=== PATIENT | male | born 1960 | race Caucasian/White ===

== ENCOUNTER → 2019-06-26 12:13 | Outpatient (BNVA) | payer OTHER, MEDICARE, SELFPAY | PROVIDERS: Referring Provider Emergency Medicine Emergency Medical Services; Visit Provider Specialist | DX: G43.909 Migraine, unspecified, not intractable, without status migrainosus (principal); H53.2 Diplopia | CPT/HCPCS: 99204 ==

== ENCOUNTER 2019-08-02 12:44 | Emergency (ER) | payer OTHER, MEDICARE, SELFPAY ==
[2019-08-02] VITALS (10 sets, daily range): BP systolic 106–134; BP diastolic 69–95; PULSE 52–58; RESP 13–16; TEMP 36.6; O2SAT 85–98; BMI 30.7
--- NOTE | 2019-08-02 13:30 | XRR_ITS ---
PROCEDURE INFORMATION: Exam: XR Chest, 1 View Exam date and time: 08/02/2019 1:57 PM Age: 59 years old Clinical indication: Chest pain; Type not specified; Prior surgery; Surgery date: 6+ months; Surgery type: Aortic aneurysm with heart valve replacement x5 yrs; Patient HX: PT came in today with c/p, unresolved, PT is an ex smoker TECHNIQUE: Imaging protocol: XR of the chest Views: 1 view. COMPARISON: No relevant prior studies available. FINDINGS: Lungs: Unremarkable. No consolidation. Pleural space: Unremarkable. No pleural effusion. No pneumothorax. Heart/Mediastinum: There are posterior sternotomy changes and postoperative changes overlying the mediastinum. Heart size not optimally evaluated with a single AP view of the chest. Bones/joints: Unremarkable. XR/XR chest 1V portable [id number] IMPRESSION: No evidence for acute cardiopulmonary disease.
--- NOTE | 2019-08-02 13:32 | ECG_ITS ---
Measurements Intervals [place] Rate: 55 P: 20 LA: 194 QRS: -10 QRSD: 107 T: 16 QT: 405 QTc: 389 SINUS BRADYCARDIA MODERATE VOLTAGE CRITERIA FOR LVH, CONSIDER NORMAL VARIANT [MEETS CRITERIA IN ON ONE OF: R(aVL), S(V1), R(V5), R(V5/V6)+S(V1)] No previous ECG available for comparison Electronically Signed On 08-02-2019 15:17:52 CDT by Ana Cristina Ware M.D. [id number]
--- NOTE | 2019-08-02 13:55 | ED_ITS ---
HPI - Dizziness General: Chief Complaint: Dizziness Stated Complaint: WEAKNESS; DIZZY Time Seen by Provider: 08/02/19 13:02 Source: patient Mode of arrival: EMS Limitations: no limitations History of Present Illness: HPI Narrative: Patient is a 59-year-old gentleman with a history of aortic aneurysm repair and aortic valve replacement who presents to the emergency department with sudden onset dizziness. He was driving home from the grocery store a few minutes ago when he developed sudden onset of dizziness and diaphoresis. He denies any chest pain at the time. He felt nauseous but no vomiting. Because of this he called the ambulance and presents to the emergency department for evaluation. MD elicited complaint: dizziness Severity: severe Description: off-balance History of similar symptoms: Yes (but never this severe or for this long.) Exacerbating factors: nothing Relieving factors: nothing Associated symptoms: Reports no associated symptoms; Denies chills, headache(s), nausea, palpitations or vomiting Associated neuro symptoms: Reports no associated symptoms; Deny numbness in extremities Review of Systems General: Reports: 10 or more systems reviewed and unremarkable except in HPI and below Const: Denies: fever(s), chills or body aches Eyes: Denies: change in vision or blurry vision Card: Denies: palpitations, irregular heart rhythm, edema or swelling of feet/ankles Resp: Denies: dyspnea, productive cough or non-productive cough GI: Denies: abdominal pain, nausea or vomiting : Denies: flank pain, dysuria, urinary frequency, urinary urgency or urinary hesitancy Musc: Denies: neck pain, back pain or extremity swelling Neuro: Denies: headache(s), numbness in extremities or weakness in extremities Endo: Denies: polyuria, polydipsia or tired all the time [facility] PFSH: Social History Smoking and tobacco status: former smoker Physical Exam Const: COMMON NORMALS: no acute distress, average body habitus, patient oriented x3, no limitations, healthy appearing, alert and well nourished HENMT: COMMON NORMALS: normocephalic, atraumatic and moist oral mucous membranes HEAD & SCALP: normocephalic and atraumatic Neck/C-Spine: COMMON NORMALS: no meningeal signs and no JVD Resp: COMMON NORMALS: normal respiratory effort, No retractions, No use of accessory muscles, clear to auscultation bilaterally and percussion normal AUSCULTATION: clear to auscultation bilaterally PERCUSSION: percussion normal Cardio: COMMON NORMALS: no JVD, regular rhythm, S1 normal heart sound present, S2 normal heart sound present, No gallops present (Cardio), No clicks present (Cardio), No murmurs present (Cardio), No rub (Cardio) and Peripheral pulses 2+ throughout RATE: bradycardic RHYTHM: regular rhythm HEART SOUNDS: S1 normal heart sound present and S2 normal heart sound present PERIPHERAL PULSES: Peripheral pulses 2+ throughout GI: COMMON NORMALS: Normal to inspection, nondistended, normoactive bowel sounds present, Soft to palpation, non-tender, No hepatosplenomegaly present, no masses and no bruits PALPATION: Yes Soft to palpation and Yes No hepatosplenomegaly present : COMMON NORMALS: Yes no CVA tenderness BLADDER/KIDNEY EXAM: Yes no CVA tenderness Back/Pelvis: COMMON NORMALS: no CVA tenderness Extremity: COMMON NORMALS: normal to inspection, full ROM, capillary refill normal, no calf tenderness and no pedal edema Neuro: COMMON NORMALS: patient oriented x3 SENSORIUM/ORIENTATION: Yes alert MENINGEAL SIGNS: Yes no meningeal signs Skin: COMMON NORMALS: no rashes or lesions noted, no wounds, turgor normal, no jaundice, no petechiae and no mottling GENERAL SKIN EXAM: no rashes or lesions noted and turgor normal Course Reevaluation(s): Reevaluation #1: Discussed his labs and imaging findings with him -negative for acute findings. He has chronic kidney disease and he is at his baseline renal function. His heart rate was in the 40s when he first arrived here and I think that may have been responsible for his symptoms so we will order a Holter monitor to see if his episodes of dizziness correlate with severe bradycardia. He voiced understanding and is in agreement with the plan. Time: 16:50 Vital Signs: Vital signs: Vital Signs Temperature 97.8 F 08/02/19 12:49 Pulse Rate 53 L 08/02/19 17:05 Respiratory Rate 16 08/02/19 17:05 Blood Pressure 125/83 08/02/19 17:05 Pulse Oximetry 94 08/02/19 17:05 MDM - Dizziness MDM Narrative: Medical decision making narrative: 59-year-old gentleman who presents to the emergency department with sudden onset of dizziness. He states that he has had a few of these episodes but none lasted this long. Evaluation in the emergency department was unremarkable. Symptoms resolved while he was here in the emergency department. When he first arrived his heart rate was in the 40s and gradually improved to the 50s during his stay here. The patient is on metoprolol 25 mg twice daily. We discussed that it is possible that he may be having bradycardic episodes causing his symptoms and therefore he will receive a Holter monitor to check to see if his symptoms coincide with bradycardia. He will follow-up with his primary care provider. Medical Records: Attestation: I reviewed the patient's medical records. Lab Data: Attestation: I reviewed the patient's lab results. Labs: Lab Results 08/02/19 08/02/19 08/02/19 Range/Units 13:59 13:59 13:59 WBC 6.7 (4.0-10.0) 10^3/ uL RBC 4.42 (4.1-5.3) 10^6/u L Hgb 15.5 (11.7-16.6) g/dL Hct 45.2 (42.0-52.0) % MCV 102.3 H (80-94) fL MCH 35.1 H (28.0-34.0) pg MCHC 34.3 (30.0-36.0) g/dL RDW 12.3 (12.1-15.1) % Plt Count 162 (130-400) 10^3/c mm MPV 12.1 H (7.4-10.4) fL Neut % (Auto) 73.8 % Lymph % (Auto) 16.9 % Lynn % (Auto) 6.1 % Eos % (Auto) 2.5 % Baso % (Auto) 0.6 % Neut # (Auto) 4.9 (1.8-7.7) 10^3/u L Lymph # (Auto) 1.1 (0.8-4.8) 10^3/u L Lynn # (Auto) 0.4 (0.2-0.9) 10^3/u L Eos # (Auto) 0.2 (0.0-0.8) 10^3/u L Baso # (Auto) 0.0 (0.0-0.1) 10^3/u L Nucleated RBC % (a uto) 0 % Nucleated RBCs # 0.0 /100WBC PT 21.60 H (10.5-13.3) SECO NDS INR 1.80 H (0.8-1.2) D-Dimer 0.30 (0-0.59) ug/mIFE U Sodium 141 (136-145) mmol/L Potassium 4.7 (3.5-5.1) mmol/L Chloride 107 (98-107) mmol/L Carbon Dioxide 24 (22-29) mmol/L Anion Gap 14.7 (5-19) BUN 23 H (6-20) mg/dL Creatinine 1.6 H (0.7-1.2) mg/dL GFR Calculation 44.6 L (90-130) mL/min Glucose 133 H (65-115) mg/dL Calculated Osmolal ity 291 (285-295) mOsm/k g Lactate (0.5-2.2) mmol/L Calcium 9.4 (8.5-10.5) mg/dL Total Bilirubin 0.4 (0.15-1.2) mg/dL AST 30 (0-40) U/L ALT 40 (0-41) U/L Alkaline Phosphata se 70 (40-130) IU/L Troponin T Baselin e (0-15) ng/L Troponin T 120 Min [place] (0-15) ng/L Delta Troponin T (0-10) ABS# NT-Pro-B Natriuret Pep 94 (0-125) pg/mL Total Protein 6.2 L (6.6-8.7) g/dL Albumin 4.2 (3.5-5.2) g/dL Globulin 2.0 (1.3-4.6) g/dL Lipase 37 (13-60) U/L 08/02/19 08/02/19 08/02/19 Range/Units 13:59 13:59 16:07 WBC (4.0-10.0) 10^3/ uL RBC (4.1-5.3) 10^6/u L Hgb (11.7-16.6) g/dL Hct (42.0-52.0) % MCV (80-94) fL MCH (28.0-34.0) pg MCHC (30.0-36.0) g/dL RDW (12.1-15.1) % Plt Count (130-400) 10^3/c mm MPV (7.4-10.4) fL Neut % (Auto) % Lymph % (Auto) % Lynn % (Auto) % Eos % (Auto) % Baso % (Auto) % Neut # (Auto) (1.8-7.7) 10^3/u L Lymph # (Auto) (0.8-4.8) 10^3/u L Lynn # (Auto) (0.2-0.9) 10^3/u L Eos # (Auto) (0.0-0.8) 10^3/u L Baso # (Auto) (0.0-0.1) 10^3/u L Nucleated RBC % (a uto) % Nucleated RBCs # /100WBC PT (10.5-13.3) SECO NDS INR (0.8-1.2) D-Dimer (0-0.59) ug/mIFE U Sodium (136-145) mmol/L Potassium (3.5-5.1) mmol/L Chloride (98-107) mmol/L Carbon Dioxide (22-29) mmol/L Anion Gap (5-19) BUN (6-20) mg/dL Creatinine (0.7-1.2) mg/dL GFR Calculation (90-130) mL/min Glucose (65-115) mg/dL Calculated Osmolal ity (285-295) mOsm/k g Lactate 1.5 (0.5-2.2) mmol/L Calcium (8.5-10.5) mg/dL Total Bilirubin (0.15-1.2) mg/dL AST (0-40) U/L ALT (0-41) U/L Alkaline Phosphata se (40-130) IU/L Troponin T Baselin e 10 (0-15) ng/L Troponin T 120 Min [place] 8.97 (0-15) ng/L Delta Troponin T -1.03 L (0-10) ABS# NT-Pro-B Natriuret Pep (0-125) pg/mL Total Protein (6.6-8.7) g/dL Albumin (3.5-5.2) g/dL Globulin (1.3-4.6) g/dL Lipase (13-60) U/L Imaging Data^: CXR: Radiologist's impression: [address] [address] XRay Report Signed Patient: Emeterio Smith #: [id number] : 2Acct#:[id number] Age/Sex: 59 / MADM Date: 08/02/19 Loc: ERRoom/Bed: Attending Dr: Ordering Provider/Ordering MD: Stefan Faith MD, [facility] Date of Service: 08/02/19 Procedure(s): XR chest 1V portable [id number] Accession Number(s): [id number] Report Number: [id number] PROCEDURE INFORMATION: Exam: XR Chest, 1 View Exam date and time: 08/02/2019 1:57 PM Age: 59 years old Clinical indication: Chest pain; Type not specified; Prior surgery; Surgery date: 6+ months; Surgery type: Aortic aneurysm with heart valve replacement x5 yrs; Patient HX: PT came in today with c/p, unresolved, PT is an ex smoker TECHNIQUE: Imaging protocol: XR of the chest Views: 1 view. COMPARISON: No relevant prior studies available. FINDINGS: Lungs: Unremarkable. No consolidation. Pleural space: Unremarkable. No pleural effusion. No pneumothorax. Heart/Mediastinum: There are posterior sternotomy changes and postoperative changes overlying the mediastinum. Heart size not optimally evaluated with a single AP view of the chest. Bones/joints: Unremarkable. XR/XR chest 1V portable [id number] IMPRESSION: No evidence for acute cardiopulmonary disease. Dictated By:Cassandra Mayo MD Signed By:Cassandra Mayo MDSigned Date/Time:08/02/191444 DD/ EKG Data^: EKG 1: Attestation: I personally reviewed and interpreted this EKG as follows: EKG interpretation date: 08/02/19 EKG interpretation time: 13:01 Prior EKG tracings: not available for review Interpretation: Sinus bradycardia. Heart rate [address] changes. EKG 2: Attestation: I personally reviewed and interpreted this EKG as follows: EKG interpretation date: 08/02/19 EKG interpretation time: 15:36 Prior EKG tracings: available for review Interpretation: Unchanged from earlier today Sinus bradycardia. Heart rate [address] changes. Discharge Plan Discharge Patient Disposition: Home, Self-Care Clinical Impression: Dizziness, Bradycardia Condition: Stable Prescriptions: Continued bupropion HCl 100 mg tablet 100 mg PO DAILY RF: 0 metoprolol tartrate 50 mg tablet 25 mg PO BID RF: 0 tamsulosin 0.4 mg capsule 0.4 mg PO DAILY RF: 0 warfarin 5 mg tablet See Rx Instructions .ROUTE .COMPLEX RF: 0 multivitamin Tablet 1 tab PO DAILY RF: 0 Discharge Orders: Discharge Order (Routine); Ordered 08/02/19 Ordered By: Stefan Faith Referrals: Elmer Renner, [Primary Care Provider] - 4-7 days Patient Instructions: Dizziness (ED) Activity Restrictions/Additional Instructions: Return for any new or worsening symptoms. Follow-up with your primary care provider within 1 week. You will need a Holter monitor to monitor your heart rate as you have symptoms that may be consistent with low heart rate. If that is the case you may need to reduce the dose of the metoprolol. You will be contacted by case management to set up the Holter monitor. Discharge Date/Time: 08/02/19 17:05 Coding Level of Care Code ED Disease Case Manager for Tatum Fwd Exam Comprehensive
[2019-08-02 14:06] LABS: Basophils % 0.6 %; Eosinophils # 0.2 10^3/uL (0.0-0.8); Eosinophils % 2.5 %; Hematocrit 45.2 % (42.0-52.0); Hemoglobin 15.5 g/dL (11.7-16.6); Lymphocytes # 1.1 10^3/uL (0.8-4.8); Lymphocytes % 16.9 %; Mean Corpuscular HGB Conc 34.3 g/dL (30.0-36.0); Mean Corpuscular Hemoglobin 35.1 pg (28.0-34.0); Mean Corpuscular Volume 102.3 fL (80-94); Mean Platelet Volume 12.1 fL (7.4-10.4); Monocytes # 0.4 10^3/uL (0.2-0.9); Monocytes % 6.1 %; Neutrophils # 4.9 10^3/uL (1.8-7.7); Neutrophils % 73.8 %; Nucleated Red Blood Cells % 0 %; Platelet Count 162 10^3/cmm (130-400); Red Blood Count 4.42 10^6/uL (4.1-5.3); Red Cell Distribution Width 12.3 % (12.1-15.1); White Blood Count 6.7 10^3/uL (4.0-10.0)
[2019-08-02 14:29] LABS: Lactate (Lactic Acid level) 1.5 mmol/L (0.5-2.2)
[2019-08-02 14:30] LABS: Troponin(5th) Baseline 10 ng/L (0-15)
[2019-08-02 14:39] LABS: Alanine Aminotransferase 40 U/L (0-41); Albumin Level 4.2 g/dL (3.5-5.2); Alkaline Phosphatase 70 IU/L (40-130); Anion Gap 14.7 (5-19); Aspartate Amino Transferase 30 U/L (0-40); Blood Urea Nitrogen 23 mg/dL (6-20); Calcium 9.4 mg/dL (8.5-10.5); Carbon Dioxide 24 mmol/L (22-29); Chloride 107 mmol/L (98-107); Glomerular Filtration Rate 44.6 mL/min (90-130); Glucose 133 mg/dL (65-115); Lipase 37 U/L (13-60); NT Pro B Type Natriuretic Pept 94 pg/mL (0-125); Osmolality Calculated 291 mOsm/kg (285-295); Potassium 4.7 mmol/L (3.5-5.1); Sodium 141 mmol/L (136-145); Total Bilirubin 0.4 mg/dL (0.15-1.2); Total Protein 6.2 g/dL (6.6-8.7)
--- NOTE | 2019-08-02 15:31 | PC.NURSE ---
EKG done at 1527 and shown to ER doctor
--- NOTE | 2019-08-02 15:32 | ECG_ITS ---
Measurements Intervals [place] Rate: 55 P: 20 IN: 194 QRS: -10 QRSD: 107 T: 16 QT: 405 QTc: 389 SINUS BRADYCARDIA MODERATE VOLTAGE CRITERIA FOR LVH, CONSIDER NORMAL VARIANT [MEETS CRITERIA IN ON ONE OF: R(aVL), S(V1), R(V5), R(V5/V6)+S(V1)] No previous ECG available for comparison Electronically Signed On 08-03-2019 21:11:51 CDT by Ana Cristina Ware M.D. [id number] f
[2019-08-02 16:29] LABS: Troponin 5 2HR 8.97 ng/L (0-15)
[2019-08-02 16:55] LABS: Troponin 5 2HR Delta -1.03 ABS# (0-10)
--- NOTE | 2019-08-02 19:32 | ECG_ITS ---
Measurements Intervals [place] Rate: 52 P: -1 SC: 205 QRS: -14 QRSD: 91 T: 6 QT: 410 QTc: 385 SINUS BRADYCARDIA MODERATE VOLTAGE CRITERIA FOR LVH, CONSIDER NORMAL VARIANT [MEETS CRITERIA IN ONE OF: R(aVL), S(V1), R(V5), R(V5/V6)+S(V1)] Compared to ECG 08/02/2019 13:01:46 No significant changes Electronically Signed On 08-03-2019 21:08:23 CDT by Ana Cristina Ware M.D. [id number]
--- NOTE | 2019-08-05 09:17 | DCPLANNER ---
senior operations manager had message to schedule an outpatient halter monitor with [facility] for patient. senior operations manager called May with [facility], informed her that patient was seen in the ED and that patient need follow up for a halter monitor. senior operations manager faxed order for halter monitor to [facility], will call for appointment information.
--- NOTE | 2019-08-18 15:01 | DCPLANNER ---
social services manager called May with [facility] to confirm if the authorization had went thru for patient for a [facility] monitor. social services manager was told that the patient is going to go to [facility] to have this completed.
== END 2019-08-02 17:05 | disposition home or self-care (01) ==
PROVIDERS: Emergency Provider Family Medicine; PCP Emergency Medicine Emergency Medical Services
DX: R42 Dizziness and giddiness (principal); R00.1 Bradycardia, unspecified; Z79.01 Long term (current) use of anticoagulants; Z87.891 Personal history of nicotine dependence; R07.9 Chest pain, unspecified
CPT/HCPCS: 12345; 36415; 71045; 80053; 83605; 83690; 83880; 84484; 85025; 85378; 85610; 93005; 99284

== ENCOUNTER → 2019-11-03 08:55 | Outpatient (BNVA) | payer OTHER, MEDICARE, SELFPAY | PROVIDERS: PCP Emergency Medicine Emergency Medical Services; Visit Provider Specialist | DX: G43.109 Migraine with aura, not intractable, without status migrainosus (principal); Z87.891 Personal history of nicotine dependence | CPT/HCPCS: 99213 ==

== ENCOUNTER 2019-12-04 20:00 | Outpatient (CLI) | payer OTHER, SELFPAY | END 2019-12-04 20:01 | disposition home or self-care (01) | LOC: SLEEP 12-05 09:38 | PROVIDERS: PCP Emergency Medicine Emergency Medical Services; Visit Provider Emergency Medicine Emergency Medical Services | DX: G47.33 Obstructive sleep apnea (adult) (pediatric) (principal) | CPT/HCPCS: 95810 ==

== ENCOUNTER 2019-12-24 20:00 | Outpatient (CLI) | payer OTHER, SELFPAY | END 2019-12-24 20:01 | disposition home or self-care (01) | LOC: SLEEP 12-25 08:50 | PROVIDERS: PCP Emergency Medicine Emergency Medical Services; Visit Provider Emergency Medicine Emergency Medical Services | DX: G47.33 Obstructive sleep apnea (adult) (pediatric) (principal) | CPT/HCPCS: 95811 ==

== ENCOUNTER 2021-01-28 17:14 | Emergency (ER) | payer OTHER, SELFPAY ==
[2021-01-28 17:38] VITALS: BP 126/72; PULSE 58; RESP 22; TEMP 36.7; O2SAT 95; BMI 26.6
--- NOTE | 2021-01-28 17:45 | ED_ITS ---
HPI - General Adult General: Chief complaint: General Medical Stated complaint: COVID Time Seen by Provider: 01/28/21 17:45 History of Present Illness: HPI narrative: Mr Smith is a 60 yo gentleman with history of known covid who presents due to generalized medical complaints. Symptom onset was 8 days ago and initially mild. Associated symptoms include decreased PO, fever/chills/sweats, and cough. Additionally has had off balance feeling. Course has worsened and is now moderate. No specific exacerbating or alleviating factors. No other changes in health. Review of Systems General: Reports: 10 or more systems reviewed and unremarkable except in HPI and below PFSH ED PFSH: Social History Smoking and tobacco status: former smoker Physical Exam Narrative: EXAM NARRATIVE: GENERAL/CONSTITUTIONAL - somewhat ill-appearing. Eyes - PERRL, no conjunctival injection ENMT - Atraumatic external nose and ears. dry mucous membranes NECK - supple. trachea midline CARDIOVASCULAR - regular rate and rhythm. RESPIRATORY -course to auscultation bilaterally. No retractions or accessory muscle use. ABDOMEN/GI - Nontender/Nondistended. MSK - Extremities without obvious deformity or tenderness to palpation SKIN - Warm, Dry NEURO - alert and appropriately oriented. no focal deficits. Moves all extremities equally. Course ED course: - Patient was seen and evaluated by me at bedside - Patient placed on cardiac monitors, IV access obtained - Initial evaluation notable for exam as above - symptom treatment ordered - Labs notable for leukocytosis with negative procalcitonin, likely dehydration - Imaging notable for no lobar consolidation - Upon serial reexamination after treatment the patient was improved - Based on patient history, evaluation, labs, and imaging as interpreted the most likely cause of the patient's condition is COVID - The results of ED evaluation were discussed with the patient including prescriptions and/or symptomatic cares (if applicable) including appropriate and responsible use, followup plan, and return precautions. The patient verbalized understanding and felt safe for discharge. - Patient discharged in satisfactory condition. Vital Signs: Vital signs: Vital Signs Temperature 98.1 F 01/28/21 17:54 Pulse Rate 70 01/28/21 20:35 Respiratory Rate 18 01/28/21 20:35 Blood Pressure 115/78 01/28/21 20:35 Pulse Oximetry 98 01/28/21 20:35 MDM - General Adult Medical Records: Attestation: I reviewed the patient's medical records. Lab Data: Attestation: I reviewed the patient's lab results. Labs: Lab Results 01/28/21 01/28/21 19:15 19:15 WBC 7.6 10^3/uL 10^3/ uL (4.0-10.0) RBC 5.05 10^6/uL 10^6 /uL (4.1-5.3) Hgb 17.1 g/dL H g/dL (11.7-16.6) Hct 49.3 % % (42.0-52.0) MCV 97.6 fl H fl (80-94) MCH 33.9 pg pg (28.0-34.0) MCHC 34.7 g/dL g/dL (30.0-36.0) RDW 11.8 % L % (12.1-15.1) Plt Count 141 10^3/cmm 10^3 /cmm (130-400) MPV 12.1 fL H fL (7.4-10.4) Neut % (Auto) 68.9 % % Lymph % (Auto) 23.5 % % [place] % (Auto) 6.3 % % Eos % (Auto) 0.7 % % Baso % (Auto) 0.3 % % Neut # (Auto) 5.26 10^3/uL 10^3 /uL (1.8-7.7) Lymph # (Auto) 1.8 10^3/uL 10^3/ uL (0.8-4.8) [place] # (Auto) 0.5 10^3/uL 10^3/ uL (0.2-0.9) Eos # (Auto) 0.1 10^3/uL 10^3/ uL (0.0-0.8) Baso # (Auto) 0.0 10^3/uL 10^3/ uL (0.0-0.1) Nucleated RBC % (a uto) 0 % % Nucleated RBCs # 0.0 /100WBC /100W BC Sodium 134 mmol/L L mmol /L (136-145) Potassium 4.3 mmol/L mmol/L (3.5-5.1) Chloride 97 mmol/L L mmol/ L (98-107) Carbon Dioxide 27 mmol/L mmol/L (22-29) Anion Gap 14.3 (5-19) BUN 15 mg/dL mg/dL (6-20) Creatinine 1.1 mg/dL mg/dL (0.7-1.2) GFR Calculation 68.5 mL/min L mL/ min (90-130) Glucose 97 mg/dL mg/dL (65-115) Calculated Osmolal ity 279 mOsm/kg L mOs m/kg (285-295) Calcium 8.6 mg/dL mg/dL (8.5-10.5) Total Bilirubin 0.5 mg/dL mg/dL (0.15-1.2) AST 41 U/L H U/L (0-40) ALT 35 U/L U/L (0-41) Alkaline Phosphata se 56 IU/L IU/L (40-130) C-Reactive Protein 46.9 mg/L H mg/L (0.0-4.9) Total Protein 6.9 g/dL g/dL (6.6-8.7) Albumin 3.9 g/dL g/dL (3.5-5.2) Globulin 3.0 g/dL g/dL (1.3-4.6) Procalcitonin 0.19 ng/mL ng/mL (0-0.5) TSH 2.26 uIU/mL uIU/m L (0.27-4.20) EKG Data^: EKG 1: Attestation: I personally reviewed and interpreted this EKG as follows: EKG interpretation date: 01/28/21 EKG interpretation time: 19:33 Interpretation: Twelve-lead EKG shows a regular rate of 60. OK interval 150, QRS duration 88, QTc 429 normal axis. Interpretation: sinus rhythm. Computer generated interpretation: Chest X-Ray 01/28/21 18:16 IMPRESSION: 1. No acute cardiopulmonary process. 2. Incidental/nonacute findings are listed in the report. Discharge Plan Discharge Patient Disposition: Home Clinical Impression: COVID-19 Condition: Stable Prescriptions: No Action bupropion HCl 100 mg tablet 100 mg PO DAILY RF: 0 metoprolol tartrate 50 mg tablet 25 mg PO BID RF: 0 tamsulosin 0.4 mg capsule 0.4 mg PO DAILY RF: 0 warfarin 5 mg tablet See Rx Instructions .ROUTE .COMPLEX RF: 0 multivitamin Tablet 1 tab PO DAILY RF: 0 Discharge Orders: Discharge ED (Routine); Ordered 01/28/21 Ordered By: Otoniel Rausch Referrals: Elmer Renner, [Primary Care Provider] - Discharge Diet: Usual diet Discharge Activity: Resume usual activity Patient Instructions: COVID-19 (Coronavirus Disease 2019) (ED) Activity Restrictions/Additional Instructions: Thank you for visiting the emergency department. You were seen and evaluated for generalized malaise associated with Covid. I think your symptoms are related to Covid, you do have mild dehydration. Please ensure that you are staying hydrated. Return to the emergency department for worsening symptoms, numbness, tingling, confusion, speech difficulty, any other new neurologic symptoms, shortness of breath, or anything else that you are concerned about and feel needs emergency department evaluation. Coding Level of Care Code ED Blank Driller for Tatum Rondon
[2021-01-28 17:54] VITALS: BP 126/72; PULSE 58; TEMP 36.7; O2SAT 95
--- NOTE | 2021-01-28 18:16 | XRR_ITS ---
PROCEDURE INFORMATION: Exam: XR Chest Exam date and time: 01/28/2021 6:16 PM Age: 60 years old Clinical indication: Other: Low blood pressure; Prior surgery; Surgery type: Open heart; Patient HX: Covid + TECHNIQUE: Imaging protocol: XR of the chest. Views: 1 view. COMPARISON: CR XR chest 1V portable [id number] 08/02/2019 1:47 PM FINDINGS: Lungs: Lungs are clear bilaterally. Pleural spaces: No pleural effusion. No pneumothorax. Heart/Mediastinum: Stable mild enlargement of the cardiac silhouette. Mediastinal contours are unremarkable. Bones/joints: Stable poststernotomy changes in the chest. XR/XR chest 1V portable [id number] IMPRESSION: 1. No acute cardiopulmonary process. 2. Incidental/nonacute findings are listed in the report.
--- NOTE | 2021-01-28 18:17 | ECG_ITS ---
[facility] Test Date: 2021-01-28 Pat Name: Emeterio Smith Department: Room: Gender: Male [employer] Analyst: : 1960 Requested By: Otoniel Rausch Order Number: [id number] Lawrence MD: Marcus Linton M.D. Measurements Intervals [place] Rate: 60 P: 30 SC: 150 QRS: 4 QRSD: 88 T: 30 QT: 429 QTc: 429 Interpretive Statements SINUS RHYTHM Compared to ECG 08/02/2019 15:35:58 Sinus bradycardia no longer present Electronically Signed On 01-29-2021 7:44:01 MUSIC LIBRARY ASSISTANT by Marcus Linton M.D. [id number]
[2021-01-28 19:12] VITALS: BP 138/101; BP 138/91; BP 155/96; PULSE 55; PULSE 59; PULSE 62; RESP 18; O2SAT 96
[2021-01-28] MEDS: sodium chloride 0.9% 500 ML IV (19:25)
[2021-01-28 19:29] LABS: Basophils % 0.3 %; Eosinophils # 0.1 10^3/uL (0.0-0.8); Eosinophils % 0.7 %; Hematocrit 49.3 % (42.0-52.0); Hemoglobin 17.1 g/dL (11.7-16.6); Lymphocytes # 1.8 10^3/uL (0.8-4.8); Lymphocytes % 23.5 %; Mean Corpuscular HGB Conc 34.7 g/dL (30.0-36.0); Mean Corpuscular Hemoglobin 33.9 pg (28.0-34.0); Mean Corpuscular Volume 97.6 fl (80-94); Mean Platelet Volume 12.1 fL (7.4-10.4); Monocytes # 0.5 10^3/uL (0.2-0.9); Monocytes % 6.3 %; Neutrophils # 5.26 10^3/uL (1.8-7.7); Neutrophils % 68.9 %; Nucleated Red Blood Cells % 0 %; Platelet Count 141 10^3/cmm (130-400); Red Blood Count 5.05 10^6/uL (4.1-5.3); Red Cell Distribution Width 11.8 % (12.1-15.1); White Blood Count 7.6 10^3/uL (4.0-10.0)
[2021-01-28 19:59] LABS: Procalcitonin 0.19 ng/mL (0-0.5); Thyroid Stimulating Hormone 2.26 uIU/mL (0.27-4.20)
[2021-01-28 20:10] LABS: Alanine Aminotransferase 35 U/L (0-41); Albumin Level 3.9 g/dL (3.5-5.2); Alkaline Phosphatase 56 IU/L (40-130); Anion Gap 14.3 (5-19); Aspartate Amino Transferase 41 U/L (0-40); Blood Urea Nitrogen 15 mg/dL (6-20); C Reactive Protein 46.9 mg/L (0.0-4.9); Calcium 8.6 mg/dL (8.5-10.5); Carbon Dioxide 27 mmol/L (22-29); Chloride 97 mmol/L (98-107); Glomerular Filtration Rate 68.5 mL/min (90-130); Glucose 97 mg/dL (65-115); Osmolality Calculated 279 mOsm/kg (285-295); Potassium 4.3 mmol/L (3.5-5.1); Sodium 134 mmol/L (136-145); Total Bilirubin 0.5 mg/dL (0.15-1.2); Total Protein 6.9 g/dL (6.6-8.7)
[2021-01-28 20:35] VITALS: BP 115/78; PULSE 70; RESP 18; O2SAT 98
== END 2021-01-28 21:35 | disposition home or self-care (01) ==
PROVIDERS: Emergency Provider Emergency Medicine; PCP Emergency Medicine Emergency Medical Services
DX: U07.1 COVID-19 (principal); Z79.01 Long term (current) use of anticoagulants; Z87.891 Personal history of nicotine dependence
CPT/HCPCS: 71045; 80053; 84145; 84443; 85025; 86140; 93005; 96360; 99284; J7040

== ENCOUNTER → 2023-05-22 11:08 | Outpatient (BNVA) | payer OTHER, SELFPAY | PROVIDERS: PCP Emergency Medicine Emergency Medical Services; Referring Provider Emergency Medicine Emergency Medical Services; Visit Provider Surgery | DX: Z12.11 Encounter for screening for malignant neoplasm of colon (principal) | CPT/HCPCS: 99203 ==

== ENCOUNTER → 2024-03-19 06:47 | Outpatient (BNVA) | payer OTHER, SELFPAY | PROVIDERS: PCP Nurse Practitioner; Visit Provider Podiatrist Foot & Ankle Surgery | DX: M79.671 Pain in right foot (principal); M21.611 Bunion of right foot; M20.41 Other hammer toe(s) (acquired), right foot; M77.41 Metatarsalgia, right foot; M25.871 Other specified joint disorders, right ankle and foot | CPT/HCPCS: 73630; 99203 ==

== ENCOUNTER → 2024-09-15 07:57 | Outpatient (BNVA) | payer OTHER, SELFPAY | PROVIDERS: PCP Nurse Practitioner; Visit Provider Podiatrist Foot & Ankle Surgery | DX: M21.611 Bunion of right foot (principal); M20.41 Other hammer toe(s) (acquired), right foot; M77.41 Metatarsalgia, right foot; M25.871 Other specified joint disorders, right ankle and foot | CPT/HCPCS: 99213 ==